=== PATIENT | male | born 1990 | race Caucasian/White ===

== ENCOUNTER 2023-01-12 15:23 | Emergency (ER) | payer OTHER, SELFPAY ==
[2023-01-12 16:32] VITALS: BP 109/46; PULSE 71; RESP 18; TEMP 36.1; O2SAT 96; BMI 23.7
--- NOTE | 2023-01-12 16:37 | ED_ITS ---
HPI - General Adult General Chief complaint: Skin/Abscess/Foreign Body Stated complaint: Rash Time Seen by Provider: 01/12/23 16:42 Source: patient and family (mother) Mode of arrival: ambulatory Limitations: no limitations History of Present Illness HPI narrative: Patient is a 32-year-old male with history of substance use disorder currently on methadone presenting to the emergency department with complaint of blistering rash to bilateral thighs which he noted this afternoon. Patient questioning poison anant. He denies any drug or alcohol use, states he does not inject any drugs. Denies any fevers, chills, body aches. Denies any new medications or recent medication changes. Denies any chest pain, palpitations, shortness of breath. Patient's mother reports that she is suspicious he is currently using drugs and states that he is currently living outdoors. Patient describes rash as mildly pruritic and not painful. MD complaint: Rash Onset (ago): hour(s) Location: lower extremity Associated symptoms: denies other symptoms Treatments prior to arrival: none Related Data Previous Rx's Medication Instructions Recorded cephalexin 500 mg capsule 500 mg PO QID #40 caps 01/12/23 doxycycline hyclate 100 mg tablet 100 mg PO BID #20 tabs 01/12/23 mupirocin 2 % topical ointment 1 appl topical TID #22 grams 01/12/23 prednisone 20 mg tablet 40 mg (2 x 20 mg) PO DAILY #10 tabs 01/12/23 Allergies Allergy/AdvReac Type Severity Reaction Status Date / Time No Known Allergies Allergy Verified 01/12/23 16:31 Review of Systems 2 Review of Systems: As per HPI. Yes all other systems are reviewed and are negative Constitutional: Constitutional: Reports as per HPI [facility] Social History Social History Advance Directives: No Advance Directives Information Provided: Yes Physical Exam ED Vital Signs: Vital Signs - 24 hr 01/12/23 16:32 Temperature 97.0 F Pulse Rate 71 Respiratory Rate 18 Blood Pressure 109/46 L Pulse Oximetry 96 Oxygen Delivery Method Room Air BMI result Body Mass Index 23.7 Vital signs have been reviewed and appear to be correct. Blood pressure normal. Heart rate normal. Respiratory rate normal. Temperature normal. Oxygen saturation normal. Const General: cooperative, healthy appearing and no acute distress Orientation/consciousness: oriented to person, oriented to place, oriented to time and patient oriented x3 Limitations: no limitations HENMI Head: Yes normocephalic and Yes atraumatic Ears: external ears normal General nose exam: Normal external nose present Face and sinus: Yes face symmetric Mouth: Normal oral and palatal mucosa present, lip normal, tongue normal, oropharynx normal and moist mucous membranes Throat: Yes uvula midline Eyes Pupils: Equal, round and reactive pupils present Neck Neck: Yes normal visual inspection and Yes supple Resp Effort & Inspection: normal respiratory effort and able to speak in complete sentences Auscultation: clear to auscultation bilaterally Cardio Rate: regular rate Rhythm: regular rhythm Heart sounds: S1 normal heart sound present and S2 normal heart sound present GI Palpation (GI): Soft to palpation and nontender Auscultation: normoactive bowel sounds General: Yes no CVA tenderness Back/Spine/Pelvis Back: no CVA tenderness Skin Other: General skin exam: elasticity normal and turgor normal Rashes: rashes noted (tense bullae filled with yellow fluid on erythematous base; Neg Nikolsky's) bullae bilateral proximal upper leg size (bullae 1-2cm), arrangement clustered and surface with an erythematous base; nontender Neuro General: oriented to person, oriented to place, oriented to time, patient oriented x3, moves all extremities, no focal motor deficits and CN's II-XI intact bilaterally Cranial nerves: Yes Equal, round and reactive pupils present Cognition (Neuro): normal cognition Extrem Other: no rash noted to palms/soles General: Yes full ROM, Yes no pedal edema and Yes no calf tenderness Psych Mental Status: mental status grossly normal Affect: normal affect Thought process: Normal thought process present Course Course Course Narrative: This is an RME: Additional HPI, ROS, PE not included below will be deferred to primary provider. This is a [id number]-male, with no known medical problems, presenting to the emergency department with complaints of rash. Reports the rash is blistering in appearance. No new soaps lotions or detergents. He is otherwise feeling well. Able to visualize rash in triage given limited privacy. Further eval needed. Plan: Further ER evaluation visualization of the rash. Medications Administered Generic Name Dose Route Start Last Admin Trade Name Freq PRN Reason Stop Dose Admin Sodium Chloride 1,000 mls @ 999 mls/hr 01/12/23 18:00 01/12/23 18:00 Ns IV 11/29/23 19:00 999 mls/hr .Q1H1M MARTHA Administration Ceftriaxone Sodium 1 gm/ 50 mls @ 100 mls/hr 01/12/23 18:02 01/12/23 18:12 Sodium Chloride IV 01/12/23 18:31 100 mls/hr ONCE ONE Administration Medical Decision Making Medical Decision Making [facility] Narrative: Patient is a 32-year-old male with history of substance use disorder currently on methadone presenting to the emergency department with complaint of blistering rash to bilateral thighs which he noted this afternoon. On exam patient is awake, A+Ox3, VS WNL, afebrile, normal neurological exam without focal deficits, physical exam findings as above. Given reported symptoms and physical exam findings, initial differential includes contact dermatitis, bullous pemphigoid, tick borne illness. Negative Nikolsky, unlikely TN/SJS. Do not suspect DRESS, DIC/TTP, SSSS, TSS, unlikely necrotizing fasciitis as patient denies pain, rash not consistent with endocarditis. Labs notable for no leukocytosis or left shift, no anemia, CRP elevated, ESR normal. Tick panel and RPR pending, will contact patient with any positive results. Case discussed with Dr. Hurtado who feels patient is stable for discharge home on p.o. and topical antibiotics. Will also prescribe short course of prednisone. Strict return precautions discussed with patient. Instructed patient to follow-up with primary care provider who is aware that he was evaluated in the emergency department tonight. Patient verbalized understanding of and agreement with plan. Differential Diagnosis Differential Diagnoses: The differential diagnosis associated with the presentation includes As per [facility]. Admission/Observation Consideration of admission/observation: Escalation of care including admission/observation considered Lab Data [facility] Lab Attestation statement: I reviewed the patient's lab results. As per MDM. 01/12/23 17:25 01/12/23 17:25 Labs: Lab Results 01/12/23 Range/Units 17:25 WBC 9.3 (4.8-10.8) X10*3/uL RBC 4.61 (4.60-5.80) X10*6/uL Hgb 13.7 L (14.0-18.0) g/dl Hct 41.1 L (42.0-52.0) % MCV 89.2 (80.0-98.0) fL MCH 29.7 (27.0-33.0) pg MCHC 33.3 (31.0-36.0) g/dl RDW 12.6 (11.0-16.0) % Plt Count 242 (160-400) X10*3/uL MPV 9.8 (9.4-12.4) fL Immature Gran % (Auto) 0.6 H (0.0-0.4) % Neut % (Auto) 67.1 (45-73) % Lymph % (Auto) 17.7 L (20-40) % Galax % (Auto) 5.7 (2-11) % Eos % (Auto) 8.8 H (0-4) % Baso % (Auto) 0.1 (0-2) % Lymph # (Auto) 1.7 (1.2-4.9) X10*3/uL Galax # (Auto) 0.5 (0.1-1.2) X10*3/uL Eos # (Auto) 0.8 H (0.0-0.4) X10*3/uL Baso # (Auto) 0.0 (0.0-0.2) X10*3/uL Abs Immat Gran (auto) 0.06 H (0.00-0.03) X10*3/uL Absolute Neuts (auto) 6.3 (2.0-8.3) x10*3/uL Absolute Nucleated RBC 0.000 (0.0-0.012) X10*3/uL Nucleated RBC % (auto) 0.0 (0.0-0.2) /100WBC Sodium 135 (135-145) mmol/L Potassium 4.0 (3.3-5.1) mmol/L Chloride 97 (96-108) mmol/L Carbon Dioxide 28 (22-29) mmol/L Anion Gap 14 (12-20) BUN 21 H (9-16) mg/dL Creatinine 1.54 H (0.5-1.4) mg/dL Estim Creat Clear Calc 74.1 Estimated GFR 52 Random Glucose 116 H (60-115) mg/dL Lactic Acid 0.7 (0.5-2.0) mmol/L Calcium 9.4 (8.4-10.2) mg/dL C-Reactive Protein 8.01 H (< or = 0.50) mg/dL Independent Historian Clinical information obtained from an independent historian. History obtained from or confirmed by: Parent (Mother) External Record Review External record reviewed: Inpatient record, Office record and Outpatient record Prescription Management I considered prescription management with: Antibiotic and Other Discharge Plan Discharge Clinical Impression: Acute bullous dermatitis Patient Disposition: Home, Self-Care Additional Instructions: You were evaluated in the emergency department today for a blistering rash. You are being prescribed oral and topical antibiotics, please use these as prescribed. Monitor the areas closely for signs of worsening infection. Return to the emergency department if you develop increasing redness, swelling, fever 100.4? F or greater, chills/sweats, body aches, rash to your mouth, palms, soles, or any other concerning symptoms. Please follow up with your primary care provider within two days. You are being referred to dermatology for further evaluation and management. Prescriptions: New doxycycline hyclate 100 mg tablet 100 mg PO BID Qty: 20 0RF cephalexin 500 mg capsule 500 mg PO QID Qty: 40 0RF mupirocin 2 % ointment 1 appl topical TID Qty: 22 0RF Rx Instructions: Apply to both legs prednisone 20 mg tablet 40 mg PO DAILY Qty: 10 0RF Referrals: [facility] [Provider Group] [facility] [Provider Group] [facility] [Provider Group]
[2023-01-12 17:32] LABS: MANUAL DIFF FLAG NO
[2023-01-12 17:37] LABS: Basophils Percent Auto 0.1 % (0-2); Eosinophils Absolute Auto 0.8 X10*3/uL (0.0-0.4); Eosinophils Percent Auto 8.8 % (0-4); Hematocrit 41.1 % (42.0-52.0); Hemoglobin 13.7 g/dl (14.0-18.0); Imm Gran Abs Auto 0.06 X10*3/uL (0.00-0.03); Imm Gran Pct Auto 0.6 % (0.0-0.4); Lymphocytes Absolute Auto 1.7 X10*3/uL (1.2-4.9); Lymphocytes Percent Auto 17.7 % (20-40); Mean Corpuscular HGB Conc 33.3 g/dl (31.0-36.0); Mean Corpuscular Hemoglobin 29.7 pg (27.0-33.0); Mean Corpuscular Volume 89.2 fL (80.0-98.0); Mean Platelet Volume 9.8 fL (9.4-12.4); Monocytes Absolute Auto 0.5 X10*3/uL (0.1-1.2); Monocytes Percent Auto 5.7 % (2-11); Neutrophils Absolute Auto 6.3 x10*3/uL (2.0-8.3); Neutrophils Percent Auto 67.1 % (45-73); Platelet Count 242 X10*3/uL (160-400); Red Blood Count 4.61 X10*6/uL (4.60-5.80); Red Cell Distribution Width 12.6 % (11.0-16.0); White Blood Count 9.3 X10*3/uL (4.8-10.8)
[2023-01-12 17:45] LABS: Lactic Acid 0.7 mmol/L (0.5-2.0)
[2023-01-12 17:47] LABS: Anion Gap 14 (12-20); Blood Urea Nitrogen 21 mg/dL (9-16); C Reactive Protein 8.01 mg/dL (< or = 0.50); Calcium 9.4 mg/dL (8.4-10.2); Carbon Dioxide 28 mmol/L (22-29); Chloride 97 mmol/L (96-108); Creatinine Clr Calc Pharmacy 74.1; Estimated Glomerular Filt Rate 52; Glucose Random 116 mg/dL (60-115); Sodium 135 mmol/L (135-145)
--- NOTE | 2023-01-12 17:49 | PC.NURSE ---
per MD Darnell, pt has hx substance use. Pt has no housing.
[2023-01-12] MEDS: 0.9 % Sodium Chloride 1,000 ML 999 ML IV (18:00)
--- NOTE | 2023-01-12 18:01 | PC.NURSE ---
IV fluids administered per provider order.
[2023-01-12] MEDS: cefTRIAXone sodium 1 GM in 0.9 % Sodium Chloride 50 ML IV (18:12)
--- NOTE | 2023-01-12 18:14 | PC.NURSE ---
abx administered per provider order.
[2023-01-12 18:32] LABS: Erythrocyte Sedimentation Rate 8 MM/HR (0-15)
[2023-01-12 18:49] VITALS: BP 119/59; PULSE 69; RESP 16; TEMP 37.3; O2SAT 96
[2023-01-13 08:49] LABS: Syphilis Screen Nonreactive (Nonreactive)
[2023-01-15 01:54] LABS: A. Phagocytphilium DNA,RT-PCR NOT DETECTED (NOT DETECTED); Babesia Microti DNA, RT-PCR NOT DETECTED (NOT DETECTED); Borrelia Miyamotoi,DNA RT-PCR NOT DETECTED (NOT DETECTED); E.Chaffeensis DNA RT-PCR NOT DETECTED (NOT DETECTED); Lyme(Borrelia ssp)DNA RT-PCR NOT DETECTED (NOT DETECTED)
== END 2023-01-12 18:56 | disposition home or self-care (01) ==
PROVIDERS: Registered Nurse Emergency; Emergency Provider Emergency Medicine; PCP Internal Medicine
DX: L13.9 Bullous disorder, unspecified (principal); M79.652 Pain in left thigh; M79.651 Pain in right thigh; Z79.899 Other long term (current) drug therapy
CPT/HCPCS: 36415; 80048; 83605; 85025; 85652; 86140; 86780; 87040; 87468; 87469; 87478; 87484; 87798; 96365; 99284; J0696